=== PATIENT | female | born 1940 | race Caucasian/White ===

== ENCOUNTER 2018-01-11 01:08 | Outpatient (CLI) | payer MEDICARE, BC, SELFPAY ==
[2018-01-11 09:41] LABS: Cholesterol 233 mg/dL (50-200); HDL Cholesterol 47 mg/dL (40-60); LDL CHOLESTEROL 137 mg/dL (<100); Triglyceride 266 mg/dL (30-150)
== END 2018-01-11 01:28 ==
PROVIDERS: PCP Family Medicine; Visit Provider Family Medicine
DX: E78.5 Hyperlipidemia, unspecified (principal)
CPT/HCPCS: 36415; 80061; 83721

== ENCOUNTER 2020-08-28 16:10 | Emergency (ER) | payer MEDICARE, BC, SELFPAY ==
[2020-08-28 16:16] VITALS: BP 185/83; PULSE 75; TEMP 36.8; O2SAT 98
--- NOTE | 2020-08-28 16:30 | DI.RAD_ITS ---
Exam(s) XR CLAVICLE LT EXAM: XR CLAVICLE LT CLINICAL HISTORY: pain, fall. TECHNIQUE: 2D digital imaging was performed. COMPARISON: No exams were available for comparison FINDINGS: There is an oblique displaced fracture midshaft of clavicle. AC joint is not distracted IMPRESSION: Midshaft displaced clavicle fracture. DATA REPOSITORY: RADIATION DOSE DELIVERED:
--- NOTE | 2020-08-28 16:46 | W.ED.GENAD ---
Discharge Plan Disposition Patient Disposition: HOME Condition: Stable Discharge Details Clinical Impression: Closed fracture of left clavicle Primary Care Provider: Jah Lala ED Provider: Jose Cuba Home Meds and New Rx's Prescriptions: Continued vitamin B complex tablet 1 tab PO DAILY RF: 0 omega-3 fatty acids [Fish Oil Concentrate] 1,000 mg capsule 1,200 mg PO BID RF: 0 cyanocobalamin (vitamin B-12) 1,000 mcg/mL solution 1,000 mcg IM monthly Qty: 10 RF: 4 Multiple Vitamin, Womens 1 EACH tablet 1 ea PO DAILY RF: 0 cholecalciferol (vitamin D3) [Vitamin D3] 400 unit capsule 1,000 unit PO DAILY RF: 0 Discharge Instructions Instructions: Clavicle Fracture (ED) Additional Instructions: Please use sling. No use of left arm until cleared by orthopedics. Follow-up with orthopedics. Return to the ER for any worsening or new concerning symptoms. Referrals: [facility] [Provider Group] Discharge Data Discharge Date/Time-TO BE ENTERED AT DEPARTURE: 08/28/20 17:51 Medical Decision Making 80-year-old female here after mechanical trip and fall with injury to his left clavicle. Patient has tenderness with swelling mid clavicle. Concern for clavicle fracture. No tenting of the skin. Lungs clear to auscultation. X-ray of the left clavicle reviewed and interpreted by me: midshaft clavicle fx. Patient immobilized with sling. Patient instructed to follow-up with orthopedics. HPI General Mode of arrival: ambulatory. Date/Time Provider Initiated Documentation: 08/28/20 16:32. Limitations to Documentation: no limitations. Information obtained by: patient. HPI Narrative: 80-year-old female here with chief complaint of left clavicle pain. Pain started about an hour prior to arrival when she had a mechanical trip and fall landing on her left shoulder. Pain is moderate and worse with any movement of her left shoulder. No associated shortness of breath or chest pain. No associated numbness or tingling. She did hit her head but did not lose consciousness. No headache or neck pain. Related Data Home Medications Medication Instructions Recorded Confirmed Multiple Vitamin, Womens 1 ea PO DAILY 05/24/12 08/28/20 vitamin B complex 1 tab PO DAILY 11/30/17 08/28/20 cholecalciferol (vitamin D3) 10 1,000 unit PO DAILY cap 12/13/18 08/28/20 mcg (400 unit) capsule omega-3 fatty acids 1,000 mg 1,200 mg PO BID cap 12/13/18 08/28/20 capsule cyanocobalamin (vitamin B-12) 1,000 mcg IM monthly #10 ml 12/19/19 08/28/20 1,000 mcg/mL injection solution Previous Rx's Medication Instructions Recorded cyanocobalamin (vitamin B-12) 1,000 mcg IM monthly #10 ml 12/19/19 1,000 mcg/mL injection solution Allergies Allergy/AdvReac Type Severity Reaction Status Date / Time codeine Allergy Unknown Verified 08/28/20 16:21 oxycodone Allergy Unknown Verified 08/28/20 16:21 cigarette smoke Allergy Verified 08/28/20 16:21 mold Allergy Verified 08/28/20 16:21 General Stated Complaint: Orthopedic DAYA: 3 Review of Systems Cardiovascular Cardiovascular: Denies chest pain Respiratory Respiratory: Reports as per HPI Gastrointestinal Gastrointestinal: Denies abdominal pain Musculoskeletal Musculoskeletal: Reports as per HPI Neurologic Neurologic: Reports as per HPI [facility] Surgical History BROKEN WRIST Extraction of cataract (~2010) Ligation of fallopian tube (~1974) SKIN BX 12/2013 Family History Mother Heart disease Hyperlipidemia Father Essential hypertension Heart disease PACEMAKER Sister Heart disease Brother Hyperlipidemia Maternal Grandfather , INFECTION at age 30. No problems noted. Paternal Grandfather Colon cancer Maternal Grandmother No problems noted. Paternal Grandmother Essential hypertension Breast cancer Son No problems noted. Daughter Hyperlipidemia Asthma Social History Smoking/Tobacco Use Status: Never Second Hand Exposure: Yes Smoking risk assessment performed?: Yes Alcohol Intake: current Alcohol Intake frequency: holidays/special occasions only Alcohol type: beer, wine and hard liquor Drug use: Never Substance use type: does not use Household members: spouse Housing: house Communication Needs: Hard of Hearing and Corrective Lenses Do you need help understanding health information?: Never Pets and animals: No Sexually active: No Do you think of yourself as: straight/heterosexual Current gender identity: female What is your relationship status?: How often do you talk on the phone with friends or family?: twice per week How often do you get together with friends or relatives?: decline to answer How often do you attend restorationism or caodaism services?: 4 or more times per year Do you belong to any clubs or organized social groups?: yes Panel score (0-1 are the most socially isolated patients): 3 Duration: 30-45 minutes/day Frequency: 3-4 times per week Lynda/Confucianism: Muslim Special lynda needs: No Seatbelt use: always Helmet use: Yes Drive intox or ride w/intox motor bus driver: No Do you feel safe at home: Yes Do you feel safe in your relationship?: Yes Exam Const General: cooperative and no acute distress HENMT Mouth: moist mucous membranes Eyes Conjunctivae: normal conjunctivae Sclera: normal sclerae Neck Neck: full ROM, trachea midline and supple Resp Auscultation: clear to auscultation bilaterally, no rales, no rhonchi and no wheezes Cardio Rate: regular rate and not tachycardic Rhythm: regular rhythm GI Palpation: soft, not firm, no guarding, no masses, not rigid and nontender Back/Spine/Pelvis Cervical Spine: cervical ROM normal and No cervical spinal tenderness Thoracic/Lumbar Spine: No thoracic spinal tenderness Skin General skin exam: no rashes or lesions noted Neuro General: patient alert, patient awake, patient oriented x3 and tone normal Motor: other (5 out of 5 strength distal left upper extremity) Sensory Exam: no sensory deficits noted (Distal left upper extremity) Extrem General: no edema Psych Appearance: grossly normal Mental Status: mental status grossly normal Course Vital Signs Vital signs: Vital Signs Temperature 36.8 C 08/28/20 16:16 Pulse 75 08/28/20 16:16 Blood Pressure 185/83 H 08/28/20 16:16 Pulse Oximetry 98 08/28/20 16:16 Temperature 36.8 C 08/28/20 16:16 Temperature Source Temporal Artery Scan 08/28/20 16:16 Pulse 75 08/28/20 16:16 Respiratory Effort Non-Labored 08/28/20 16:20 Blood Pressure 185/83 H 08/28/20 16:16 Blood Pressure Position Sitting 08/28/20 16:16 Pulse Oximetry 98 08/28/20 16:16 Oxygen Delivery Method Room Air 08/28/20 16:16 Oxygen Flow Rate 0 08/28/20 16:16 Pain Level 6 08/28/20 16:22
--- NOTE | 2020-08-28 17:23 | DI.VRAD_ITS ---
PROCEDURE INFORMATION: Exam: XR Left Clavicle, Complete Exam date and time: 08/28/2020 4:43 PM Age: 80 years old Clinical indication: Other: Left clavicle pain after fall TECHNIQUE: Imaging protocol: XR Left clavicle complete. Views: Any number of views. COMPARISON: No relevant prior studies available. FINDINGS: Bones/joints: Oblique fracture through the midshaft of the clavicle, with mild displacement. The glenohumeral joint is unremarkable. Soft tissues: Normal. IMPRESSION: Oblique fracture through the midshaft of the left clavicle, with mild displacement. Dictated and Authenticated by: Gabriele Tobias MD. Ordering:HEMANT Garcia MD
[2020-08-28 17:48] VITALS: BP 185/83; PULSE 75; RESP 20; TEMP 36.8; O2SAT 98
--- NOTE | 2020-08-29 13:56 | PDOC.ERCMPRO ---
- If Service Date Differs Date of service: 08/29/20 Time of Service: 13:56 Care Management Progress Note Jocelyn is seen in the ED on 08/28/20 for a closed fracture of left clavicle. CM coordinates a referral to [facility] to assist Jocelyn in obtaining an appointment.
== END 2020-08-28 17:51 | disposition home or self-care (01) ==
PROVIDERS: Emergency Provider Student in an Organized Health Care Education/Training Program; PCP Family Medicine
DX: S42.022A Displaced fracture of shaft of left clavicle, initial encounter for closed fracture (principal); W01.0XXA Fall on same level from slipping, tripping and stumbling without subsequent striking against object, initial encounter
CPT/HCPCS: 99283; 73000

== ENCOUNTER 2020-09-06 09:17 | Outpatient (CLI) | payer MEDICARE, BC, SELFPAY ==
--- NOTE | 2020-09-06 08:45 | DI.RAD_ITS ---
Exam(s) XR CLAVICLE LT LIMITED 1V EXAM: XR CLAVICLE LT LIMITED 1V CLINICAL HISTORY: follow up TECHNIQUE: 2D digital imaging was performed. COMPARISON: CR,XR XR CLAVICLE LT from 08/28/2020 FINDINGS: BONES: There is again seen an acute comminuted fracture of the midshaft of the left clavicle. The la teral fracture fragment is inferiorly displaced relative to the medial component. The degree of disp lacement may be exaggerated compared to the prior examination due to the angle at which the examinati on was performed. JOINTS: No dislocation present. Degenerative changes of the left acromioclavicular joint. SOFT TISSUE: Normal. IMPRESSION: Acute comminuted left clavicular fracture. DATA REPOSITORY: RADIATION DOSE DELIVERED:
== END 2020-09-06 09:18 | disposition home or self-care (01) ==
LOC: DIORS 09:18
PROVIDERS: PCP Family Medicine; Referring Provider Family Medicine; Visit Provider Physician Assistant Surgical
DX: W01.0XXA Fall on same level from slipping, tripping and stumbling without subsequent striking against object, initial encounter; S42.022A Displaced fracture of shaft of left clavicle, initial encounter for closed fracture
CPT/HCPCS: 99214; 73000

== ENCOUNTER 2020-09-19 14:01 | Outpatient (CLI) | payer MEDICARE, BC, SELFPAY ==
--- NOTE | 2020-09-19 10:30 | DI.RAD_ITS ---
Exam(s) XR CLAVICLE LT EXAM: XR CLAVICLE LT CLINICAL HISTORY: F/U FRACTURE L CLAVICLE TECHNIQUE: 2D digital imaging was performed. COMPARISON: CR,XR XR CLAVICLE LT from 08/28/2020 CR XR CLAVICLE LT LIMITED 1V from 09/06/2020 FINDINGS: BONES: There is again seen a comminuted fracture of the midshaft of the left clavicle which is displa natacha. Similar compared to the examination from 08/28/2020. No new fracture or dislocation is seen. N o bony destructive lesion is seen. JOINTS: No dislocation present. SOFT TISSUE: Normal. IMPRESSION: Comminuted mid left clavicular fracture. DATA REPOSITORY: RADIATION DOSE DELIVERED:
== END 2020-09-19 14:02 | disposition home or self-care (01) ==
LOC: DIORS 14:04
PROVIDERS: PCP Family Medicine; Referring Provider Family Medicine; Visit Provider Physician Assistant Surgical
DX: S42.022D Displaced fracture of shaft of left clavicle, subsequent encounter for fracture with routine healing (principal); X58.XXXD Exposure to other specified factors, subsequent encounter
CPT/HCPCS: 99213; 73000

== ENCOUNTER 2020-10-17 09:38 | Outpatient (CLI) | payer MEDICARE, BC, SELFPAY ==
--- NOTE | 2020-10-17 09:00 | DI.RAD_ITS ---
Exam(s) XR CLAVICLE LT EXAM: XR CLAVICLE LT CLINICAL HISTORY: CLAVICLE FRACTURE. TECHNIQUE: 2D digital imaging was performed. COMPARISON: CR XR CLAVICLE LT from 09/19/2020 FINDINGS: Again noted is over riding displaced midshaft fracture of the left clavicle. There is some callus fo rmation. No further displacement of the comminuted fracture fragments. AC joint appears unremarkabl e as does the glenohumeral joint. IMPRESSION: DATA REPOSITORY: RADIATION DOSE DELIVERED:
== END 2020-10-17 09:39 | disposition home or self-care (01) ==
LOC: DIORS 09:38
PROVIDERS: PCP Family Medicine; Referring Provider Family Medicine; Visit Provider Physician Assistant Surgical
DX: S42.022D Displaced fracture of shaft of left clavicle, subsequent encounter for fracture with routine healing (principal); X58.XXXD Exposure to other specified factors, subsequent encounter
CPT/HCPCS: 99213; 73000

== ENCOUNTER 2021-07-22 16:31 | Outpatient (REF) | payer MEDICARE, SELFPAY ==
--- NOTE | 2021-07-22 16:00 | SKI_PTH ---
PATIENT: Jocelyn Simpson LOC: [facility] U#:[id number] AGE/SX: 81/F ROOM: RE07/22/[address]: Jah Lala MD : 1940 BED: DIS: 07/22/2021 SPEC #: [id number] RECD: 07/23/21 12:43 STATUS: DALE REQ #: [id number] SHANNON: 07/22/21 16:[address]: Jah Lala DEPT: Surgical Specimen RECD BY: Bonita Krishnamurthy Tissues: 1 - SKIN BIOPSY(SHAVE/PUNCH) Procedures: SKIN LEVEL 4 Comments: [id number]
== END 2021-07-22 16:32 | disposition home or self-care (01) ==
LOC: LBN 16:31
PROVIDERS: PCP Family Medicine; Visit Provider Family Medicine
DX: C44.722 Squamous cell carcinoma of skin of right lower limb, including hip (principal)
CPT/HCPCS: 88305

== ENCOUNTER → 2021-08-26 00:43 | Outpatient (CLI) | payer MEDICARE, SELFPAY ==
--- NOTE | 2021-08-26 08:49 | DI.RAD_ITS ---
Exam(s) XR KNEE RT 3V AP,LAT,CHAPARRITA EXAM: XR KNEE RT 3V AP,LAT,CHAPARRITA CLINICAL HISTORY: rt knee pain,m25.561. TECHNIQUE: 2D digital imaging was performed. COMPARISON: No exams were available for comparison FINDINGS: 3 views No evidence of fracture but there appears to be some joint fluid. No joint space narrowing. No victoriano inal osteophytes. There is a small 2 millimeter calcific density off the outer aspect of the medial femoral condyle. Correlation of the any tenderness over the medial collateral ligament area recommen ded. IMPRESSION: DATA REPOSITORY: RADIATION DOSE DELIVERED:
== END ==
PROVIDERS: PCP Family Medicine; Visit Provider Physician Assistant
DX: M25.561 Pain in right knee
CPT/HCPCS: 11603; 73562

== ENCOUNTER 2021-08-26 10:24 | Outpatient (REF) | payer MEDICARE, SELFPAY ==
--- NOTE | 2021-08-26 09:40 | SKI_PTH ---
PATIENT: Jocelyn Simpson LOC: [facility] U#:[id number] AGE/SX: 81/F ROOM: RE08/26/[address]: EFFIE Puente : 1940 BED: DIS: 08/26/2021 SPEC #: [id number] RECD: 08/26/21 12:55 STATUS: DALE REQ #: [id number] SHANNON: 08/26/21 09:[address]: Caren Pedersen DEPT: Surgical Specimen RECD BY: Bonita Krishnamurthy ENTERED: 08/26/21 12:56 SP TYPE: JESSE PATE DR: Jah Lala MD Tissues: 1 - SKIN BIOPSY(SHAVE/PUNCH) Procedures: SKIN LEVEL 4 Comments: [id number]
== END 2021-08-26 10:25 | disposition home or self-care (01) ==
LOC: LBN 10:24
PROVIDERS: PCP Family Medicine; Visit Provider Physical Therapy Assistant
DX: K13.70 Unspecified lesions of oral mucosa (principal)
CPT/HCPCS: 88305

== ENCOUNTER → 2021-09-05 13:23 | Outpatient (BNVA) | payer MEDICARE, SELFPAY | PROVIDERS: PCP Family Medicine; Referring Provider Family Medicine; Visit Provider Physical Therapy Assistant | DX: Z48.02 Encounter for removal of sutures (principal); C44.92 Squamous cell carcinoma of skin, unspecified | CPT/HCPCS: 99212 ==

== ENCOUNTER → 2021-11-03 09:53 | Outpatient (BNVA) | payer MEDICARE, SELFPAY | PROVIDERS: PCP Family Medicine; Referring Provider Family Medicine; Visit Provider Student in an Organized Health Care Education/Training Program | DX: M23.91 Unspecified internal derangement of right knee (principal) | CPT/HCPCS: 99213 ==

== ENCOUNTER 2021-11-18 02:58 | Outpatient (CLI) | payer MEDICARE, SELFPAY ==
[2021-11-18 13:04] LABS: Calculated LDL 118 mg/dL (<100); Cholesterol 225 mg/dL (<200); HDL Cholesterol 47 mg/dL (40-60); Triglyceride 303 mg/dL (<150); Vitamin B12 652 pg/mL (193-986)
== END 2021-11-18 02:59 | disposition home or self-care (01) ==
LOC: LOS 02:58
PROVIDERS: PCP Family Medicine; Visit Provider Family Medicine
DX: E78.5 Hyperlipidemia, unspecified (principal); D64.9 Anemia, unspecified; E53.8 Deficiency of other specified B group vitamins
CPT/HCPCS: 36415; 80061; 82607

== ENCOUNTER 2022-04-10 01:31 | Outpatient (CLI) | payer MEDICARE, SELFPAY ==
[2022-04-10 09:56] LABS: Triglyceride 164 mg/dL (<150)
== END 2022-04-10 01:32 | disposition home or self-care (01) ==
LOC: LBO 01:32
PROVIDERS: PCP Family Medicine; Visit Provider Family Medicine
DX: E78.1 Pure hyperglyceridemia (principal)
CPT/HCPCS: 36415; 84478

== ENCOUNTER 2023-02-02 03:57 | Outpatient (CLI) | payer MEDICARE, SELFPAY ==
[2023-02-02 08:50] LABS: HCT 40.5 % (36.0-46.0); HGB 13.3 g/dL (11.2-15.7); MCH 30.3 pg (27.0-33.0); MCHC 32.8 % (32.0-36.0); MCV 92 fL (80-95); MPV 9.3 fL (8.0-11.0); Platelet Count 262 10^3/uL (130-400); RBC 4.39 10^6/uL (3.93-5.22); RDW 12.7 % (11.7-14.6); RDW-SD 43.5 fL; WBC 4.67 10^3/uL (4.4-10.8)
[2023-02-02 09:32] LABS: Calculated LDL 132 mg/dL (<100); Cholesterol 218 mg/dL (<200); HDL Cholesterol 63 mg/dL (40-60); Triglyceride 119 mg/dL (<150); Vitamin B12 718 pg/mL (193-986)
[2023-02-03 11:12] LABS: Syphilis Serology (RPR) Negative (Negative)
== END 2023-02-02 03:58 | disposition home or self-care (01) ==
PROVIDERS: PCP Family Medicine; Visit Provider Family Medicine
DX: R53.83 Other fatigue (principal); E78.5 Hyperlipidemia, unspecified; R41.3 Other amnesia; D64.9 Anemia, unspecified
CPT/HCPCS: 36415; 80061; 85027; 82607; 84443; 86592

== ENCOUNTER 2024-07-10 04:17 | Outpatient (CLI) | payer MEDICARE, SELFPAY ==
[2024-07-10 13:03] LABS: Vitamin B12 791 pg/mL (193-986)
== END 2024-07-10 04:18 | disposition home or self-care (01) ==
LOC: LOS 04:17
PROVIDERS: PCP Family Medicine; Visit Provider Family Medicine
DX: D64.9 Anemia, unspecified (principal)
CPT/HCPCS: 36415; 82607